=== PATIENT | female | born 1945 | race Caucasian/White ===

== ENCOUNTER → 2016-12-10 | Outpatient (CLI) | payer MEDICARE ==
--- NOTE | 2016-12-16 08:48 | NM ---
EXAM DESCRIPTION: Bone Scan, Whole Body CLINICAL HISTORY: 71 years Female, MALIGNANT NEOPLASM OF CENTRAL PORTION OF RIGHT BREAST COMPARISON: None. TECHNIQUE: Whole body imaging at three hours following 28 mCi of technetium MDP FINDINGS: Normal distribution of the isotope with normal renal and bladder activity is noted with minimal degenerative activity at the lower lumbar spine. Increased degenerative activity in the medial aspect of the left knee is also noted. A pattern to suggest metastatic disease is not apparent. IMPRESSION: Negative bone scan for metastatic disease with degenerative changes involving the left knee and lower lumbar spine. Electronically signed by: Ronald Ojeda MD 12/16/2016 8:48 AM CDT
== END | disposition home or self-care (01) ==
LOC: NM 07:46
PROVIDERS: ATTEND Internal Medicine Hematology & Oncology
DX: M79.605 Pain in left leg (principal)

== ENCOUNTER → 2017-12-22 | Outpatient (CLI) | payer MEDICARE ==
--- NOTE | 2017-12-23 10:29 | CT ---
EXAM DESCRIPTION: Chest w/Contrast CLINICAL HISTORY: 72 years Female, BREAST CA COMPARISON: CT chest dated 12/31/2015. TECHNIQUE: Contiguous thin section axial images through the chest were obtained after the administration of intravenous contrast. Sagittal and coronal reconstructions were reviewed. FINDINGS: The visualized thyroid gland and supraclavicular region appear normal. Stable 8 mm right paratracheal lymph node. No evidence of abnormally enlarged mediastinal, hilar or axillary lymphadenopathy. Trachea is midline and the central tracheobronchial tree is patent. Mild emphysematous changes are identified in the bilateral upper lobes. Again identified are groundglass nodules in the right upper lobe on image numbers 32, 46 and 58, in the right lower lobe on image #79. Soft tissue nodule in the left lower lobe on image #85 has increased in size from 4 mm to 5.8 mm. No evidence of pleural effusions. The heart is normal in size with no pericardial effusion. The visualized aorta is nonaneurysmal with no significant atherosclerosis. The superior vena cava is normal in size and caliber.No significant coronary artery atherosclerosis. The esophagus appears normal throughout its visualized length. The liver demonstrates a mildly nodular contour which can be seen with cirrhosis. Few subcentimeter retroperitoneal and claude hepatic lymph nodes are identified. The visualized bones appear grossly unremarkable. IMPRESSION: Stable groundglass changes in the right upper lobe as detailed above. The left lower lobe soft tissue nodule has mildly increased in size from 4 mm to 5.8 mm. No other new nodules or masses are visualized in the lungs. Possible early cirrhosis of the liver. This exam was performed according to our departmental dose-optimization program, which includes automated exposure control, adjustment of the mA and/or kV according to patient size and/or use of iterative reconstruction technique. Electronically signed by: Johnna Abraham MD 12/23/2017 10:28 AM CDT
== END ==
LOC: LAB.O 13:06
PROVIDERS: ATTEND Internal Medicine Hematology & Oncology
DX: C50.111 Malignant neoplasm of central portion of right female breast (principal)

== ENCOUNTER → 2018-11-03 | Outpatient (CLI) | payer MEDICARE | LOC: CT 14:06 | PROVIDERS: ATTEND Internal Medicine Hematology & Oncology | DX: C50.111 Malignant neoplasm of central portion of right female breast (principal) ==

== ENCOUNTER → 2019-05-18 | Outpatient (CLI) | payer MEDICARE ==
--- NOTE | 2019-05-19 10:27 | CT ---
EXAM DESCRIPTION: CT ABDOMEN WITHOUT AND WITH CONTRAST CLINICAL HISTORY: MALIGNANT NEOPLASM OF CENTRAL PORTION OF RIGHT BREAST COMPARISON: CT chest dated November 04, 2018 TECHNIQUE: Contiguous 3 mm axial images were obtained from above the diaphragms to below the anterior superior iliac spine level without and with the use of intravenous contrast. Oral contrast was given. Reformatted coronal and sagittal images were also obtained and reviewed. This exam was performed according to our departmental dose-optimization program, which includes Automated exposure control, adjustment of the mA and/or kV according to patient size and/or use of iterative reconstruction technique. FINDINGS: The visualized lower thorax demonstrates a stable appearing cystic lesion in the superior segment of left lower lobe closely abutting the pleura, however interval development of a 1.0 cm soft tissue density nodular opacity adjacent to the cystic lesion is concerning for metastasis in this patient with prior history of breast cancer. This was not noted on prior CT chest dated November 03, 2018. Diffuse fatty infiltration of the liver noted with no evidence of focal mass lesion or intrahepatic ductal dilatation. The gallbladder, spleen, pancreas and both adrenal glands appear grossly unremarkable. Both kidneys enhance symmetrically with no evidence of hydronephrosis, nephrolithiasis, hydroureter are perinephric stranding. The distal esophagus appears grossly unremarkable. The stomach is collapsed. The visualized small and large bowel loops appear grossly unremarkable with no abnormal dilatation or wall thickening. The appendix appears grossly unremarkable. No free intraperitoneal air or fluid. Again noted are enlarged abdominal lymph nodes, the claude hepatic node measuring up to 1 cm which appears stable from prior exam, mildly prominent peripancreatic node measuring up to 7 mm also appears stable from prior exam and paraesophageal lymph nodes. No enlarged retroperitoneal lymphadenopathy. The abdominal aorta is nonaneurysmal with the extensive atherosclerotic calcifications. The IVC appears grossly unremarkable. Review of the bone windows demonstrates a 1.3 cm lytic lesion within the anterior aspect of the L5 vertebral body is concerning for metastasis. Grade 2 anterolisthesis of L4 over L5 noted. Diffuse osteopenia of the visualized thoracolumbar spine noted.. IMPRESSION: 1. The visualized lower thorax demonstrates interval development of a 1 cm noncalcified nodular opacity in the superior segment of left lower lobe adjacent to the previously noted cystic lesion is concerning for metastasis in this patient with prior history of breast cancer. Further evaluation with a CT chest with contrast is recommended. This was not noted on prior CT chest dated November 03, 2018. 2. A 1.3 cm lytic lesion within the anterior aspect of L5 vertebral body is concerning for metastasis. No prior imaging available for comparison. A bone scan is recommended to exclude metastasis. 3. No other evidence of metastatic disease within the abdomen or pelvis. 4. Stable appearing mildly prominent abdominal lymph nodes as noted above with no significant interval increase in size. 5. Diffuse fatty infiltration of the liver. Electronically signed by: Grant Lizama MD 05/19/2019 10:25 AM CDT
== END ==
LOC: CT 13:32
PROVIDERS: ATTEND Internal Medicine Hematology & Oncology
DX: C50.111 Malignant neoplasm of central portion of right female breast (principal); R91.1 Solitary pulmonary nodule; M89.9 Disorder of bone, unspecified; K76.0 Fatty (change of) liver, not elsewhere classified

== ENCOUNTER 2019-07-22 16:05 | Emergency (ER) | payer MEDICARE ==
[2019-07-22 16:15] VITALS: TEMP 97.8
[2019-07-22] MEDS ORDERED: KETOROLAC TROMETHAMINE INJ 30 MG/ML VIAL IM ONE (16:27)
--- NOTE | 2019-07-22 16:27 | ED.PDOC ---
History of Present Illness - General Chief Complaint: General Stated Complaint: L chest wall discomfort Time Seen by Provider: 07/22/19 16:18 Source: patient, RN notes reviewed, Vital Signs reviewed Exam Limitations: no limitations - History of Present Illness Initial Comments: this is a 74-year-old white female who presents to the emergency Department with complaints of left-sided rib pain for the past week. She states that last week she had thrown a calendar on the floor beside her bed and then proceeded to slip on it when she got out of bed and fell on her right side. She states that initially both sides of her ribs hurt however the right side has improved in the left has not. She also bruised the right side of her face whenever that occurred and that has improved. She states that she has no facial pain nor does she have any alteration of her vision. Some Tylenol PM for the pain in described the pain as being sharp and 9/10 currently. Small pillow over the left side of her ribs. She states that there is been no bruising developed. Patient is not having any shortness of breath with this. She states that she is not taking any blood pressure medications although her blood pressure is high today. She does admit that she was given antihypertensives to her by her PCP but does not take them because they made her feel bad. She denies having any headache. Allergies/Adverse Reactions: Allergies NO KNOWN ALLERGY Allergy (Verified 08/03/13 14:42) Home Medications: Ambulatory Orders Calcium 600 mg PO DAILY 12/11/15 Cholecalciferol [Vitamin D-3] 2,000 unit PO DAILY 12/11/15 Multiple Vitamins W/ Minerals [One Daily For Women 50+A] 1 tab PO DAILY 12/11/15 Letrozole 2.5 mg PO DAILY 07/22/19 Tramadol HCl 50 mg PO Q6HRS #30 tab 07/22/19 Review of Systems - Review of Systems Constitutional: States: no symptoms reported EENTM: States: no symptoms reported Respiratory: States: no symptoms reported Cardiology: States: chest pain - left rib pain. Denies: edema, syncope Gastrointestinal/Abdominal: States: no symptoms reported Genitourinary: States: no symptoms reported Musculoskeletal: States: other - left-sided rib pain Skin: States: no symptoms reported, see HPI Neurological: States: no symptoms reported Past Medical History (General) - Patient Medical History Hx Stroke: No Hx Cardiac Disorders: No Hx Congestive Heart Failure: No Hx Diabetes: No Hx Cancer: Yes - R mastectomy - chemo followed by radiation Hx MRSA: No Surgical History: Hysterectomy - Vaccination History Hx Influenza Vaccination: No Hx Pneumococcal Vaccination: Yes - Social History Hx Tobacco Use: Yes Hx Alcohol Use: Yes - Occasional Hx Substance Use: No Family Medical History - Family History Mother Living Status: Hx Family Cancer: Yes - Colon Physical Exam - Physical Exam General Appearance: Alert, No apparent distress, Other - patient is noted to be splinting her left ribs Eye Exam: bilateral normal Ears, Nose, Throat: other - old bruising noted to the right zygoma and no tenderness is noted Neck: non-tender, full range of motion, supple, normal inspection Respiratory: lungs clear, normal breath sounds, no respiratory distress, no a ccessory muscle use, other - tenderness to palpation inferior to the left breast and extending to the mid axillary line and posteriorly to the left hemithorax Cardiovascular/Chest: normal peripheral pulses, regular rate, rhythm, no edema, no gallop, no JVD, no murmur Gastrointestinal/Abdominal: normal bowel sounds, non tender, soft Rectal Exam: deferred Back Exam: normal inspection, no CVA tenderness Extremity: normal range of motion, non-tender, normal inspection, no pedal edema, no calf tenderness 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 Patient will have x-ray evaluation performed. We will give her analgesia as needed. 07/22/19 17:00 reported rib fractures to the patient. Toradol has helped a little bit. Her blood pressure has responded well. We will get her ready for discharge. - Results/Orders Results/Orders: IMPRESSION: There are acute nondisplaced fractures of the left lateral third through sixth ribs. Electronically signed by: Leeann Brooke MD 07/22/2019 4:55 PM [employer] Departure - Departure Clinical Impression: Rib fractures, Fall Time of Disposition: 17:01 Disposition: Discharge to Home or Self Care Condition: Good Departure Forms: ED Discharge - Pt. Copy, Patient Portal Self Enrollment Referrals: Debi Byrd NP [Family Provider] - 1-2 Weeks Prescriptions: Tramadol HCl 50 mg PO Q6HRS #30 tab Home Medications: Ambulatory Orders Calcium 600 mg PO DAILY 12/11/15 Cholecalciferol [Vitamin D-3] 2,000 unit PO DAILY 12/11/15 Multiple Vitamins W/ Minerals [One Daily For Women 50+A] 1 tab PO DAILY 12/11/15 Letrozole 2.5 mg PO DAILY 07/22/19 Tramadol HCl 50 mg PO Q6HRS #30 tab 07/22/19 Additional Instructions: May continue to use Advil as necessary. Use tramadol for breakthrough pain. Follow up with PCP if continued discomfort. Return to ER as needed.
--- NOTE | 2019-07-22 16:56 | RAD ---
EXAM: XR Left Ribs, 2 Views CLINICAL HISTORY: fall, rib pain TECHNIQUE: Frontal and oblique views of the left ribs. COMPARISON: No relevant prior studies available. FINDINGS: Limitations: None. Lungs: Unremarkable as visualized. No consolidation. Pleural space: Unremarkable. No pneumothorax. Bones/joints: There are acute nondisplaced fractures of the left lateral third through sixth ribs. IMPRESSION: There are acute nondisplaced fractures of the left lateral third through sixth ribs. Electronically signed by: Leeann Brooke MD 07/22/2019 4:55 PM [facility]
[2019-07-22 17:01] VITALS: BP 179/92; O2SAT 94
== END 2019-07-22 17:08 | disposition home or self-care (01) ==
LOC: ER 16:05
DX: S22.42XA Multiple fractures of ribs, left side, initial encounter for closed fracture (principal); Z85.3 Personal history of malignant neoplasm of breast; Z87.891 Personal history of nicotine dependence; Z92.21 Personal history of antineoplastic chemotherapy; Z92.3 Personal history of irradiation; W01.0XXA Fall on same level from slipping, tripping and stumbling without subsequent striking against object, initial encounter; Z79.899 Other long term (current) drug therapy; Y92.9 Unspecified place or not applicable
CPT/HCPCS: 71101; J1885

== ENCOUNTER → 2020-06-12 | Outpatient (CLI) | payer MEDICARE ==
--- NOTE | 2020-06-13 09:56 | RAD ---
EXAM DESCRIPTION: Chest,2 Views CLINICAL HISTORY: ADENOCARCINOMA OF LEFT LUNG, STAGE 1 COMPARISON: Chest radiograph dated March 18, [address] dated November 13, 2018 TECHNIQUE: Two-view radiograph of the chest FINDINGS: Cardiac silhouette shows normal heart size. Pulmonary vascularity is within normal limits. Very subtle spiculation right mid lung zone may represent which correlates with approximately location of fibrotic changes of a superior segment right lower lobe on comparison chest CT of November 13, 2018. Previously demonstrated groundglass nodules better characterized on comparison chest CT of 2018. Left lung shows no confluent infiltrates. No pleural effusion. No pneumothorax. No acute osseous abnormality. IMPRESSION: Very subtle spiculation right mid lung zone may represent which correlates with approximate location of fibrotic changes of a superior segment right lower lobe lesion on comparison chest CT of November 13, 2018. Previously demonstrated groundglass pulmonary nodules better characterized on comparison chest CT of 2018. Electronically signed by: Valente Mancilla MD 06/13/2020 9:55 AM [employer]
== END ==
LOC: RAD 14:04
PROVIDERS: ATTEND Thoracic Surgery (Cardiothoracic Vascular Surgery)
DX: C34.92 Malignant neoplasm of unspecified part of left bronchus or lung (principal)

== ENCOUNTER → 2020-08-20 | Outpatient (CLI) | payer MEDICARE ==
--- NOTE | 2020-08-20 17:31 | CT ---
EXAMS DESCRIPTION: CT chest with contrast CT ABDOMEN AND PELVIS WITH CONTRAST CLINICAL HISTORY: BREAST CANCER COMPARISON: Previous CT chest November 03, 2018, previous CT abdomen and pelvis May 18, 2019 TECHNIQUE: CT of the abdomen and pelvis are performed during IV bolus administration of 100 mL of Isovue 300. No oral contrast. FINDINGS: CT chest Normal enhancement of mediastinal vessels and cardiac chambers. Extensive coronary calcification. Inhomogeneous thyroid gland could be further evaluated with sonography. Previous right mastectomy. Normal appearance of the left breast tissue. No axillary adenopathy or chest wall mass. Heart size is normal. No pericardial effusion. Lung window images are compared to previous chest CT November 03, 2018 and upper images of the abdominal CT from May 18, 2019. Biapical pleural-parenchymal scarring with subpleural fibrotic changes in the upper lobes. Broad area of groundglass density in the right upper lobe is seen peripherally measuring 3.3 x 1.9 cm. This abnormality was present on the previous CT chest November 03, 2018 and measured 2.6 x 1.6 cm at that time. The lesion has increased in size. Ring lesion with groundglass density periphery is seen more inferiorly in the right lung peripherally measuring 1.9 cm compared to 2 cm on previous study. In the superior segment right lower lobe, posteriorly abutting the pleura, lobulated consolidative lesion with internal air bronchograms is present. This is larger and denser than on the previous study which appear predominantly cystic. Upper solid component now measures 2.4 x 2.3 cm and the lower solid component closely adjacent or connected measures 3 x 1.3 cm. Previously in this area bilobed cystic lesion measured approximately 2 cm superiorly and 1.7 cm inferiorly, obviously enlarged and increasing intensity since previous. The appearance of these lesions is not typical of breast cancer metastases. Primary lung cancer (alveolar cell carcinoma) or infectious processes might be considered. Correlate with results of findings of aspiration/cultures. Abnormal densities are predominantly linear in the left lower lobe with appearance suggesting previous surgical resection of a lung lesion or linear scarring or rounded atelectasis. A subpleural masslike density measures 1.8 cm on the present study appears new. This could be followed. A cystic lesion was seen in the left lower lobe in this general vicinity on the earlier chest CT and is not identified on the present exam. Patient had an abdominal CT May 18, 2019 which showed a nodular lesion in the left lower lobe with cystic extension cephalad. This is no longer seen and is evidently surgically absent. Left lower lobe appears smaller suggesting partial resection. Clinical correlation recommended however. No left upper lobe lesion on the present exam. Coronal and sagittal reformatted images confirm the findings. Spiculated mass in the superior segment right lower lobe extends to the upper major fissure which is retracted inferiorly. Old healed left rib fractures. Sternum and T-spine appear intact. No bony destructive lesions to suggest osseous metastatic disease of the thorax. CT abdomen Liver surface irregularities consistent with cirrhosis. Gallbladder appears normal. Prominent lymph nodes are seen near the upper inferior vena cava, in the gastrohepatic ligament and in the celiac/peripancreatic regions. These are prominent related to chronic inflammatory disease of the liver most likely. These findings were present on previous study. Prominent vessels in the gastrohepatic ligament may indicate collateral formation from portal hypertension. No calcified stones in the gallbladder. Multiple calcified granulomas in the spleen. Small cysts in the kidneys. No focal liver lesion. Otherwise the spleen, pancreas, gallbladder, adrenal glands, stomach and kidneys are normal in appearance. No inflammation around the pancreas. No renal stones or hydronephrosis. No bowel dilatation to suggest obstruction. Prominent thickness of the colonic wall of the transverse colon and right colon with low density suggesting mild submucosal edema. Incomplete colonic distention, colitis or portal hypertensive colopathy might all be considered. This is a new finding compared to previous study. No edema around the colonic wall to suggest acute infection or inflammatory bowel disease. Normal appearance of the appendix. No free air or free fluid. CT pelvis Appendix appears normal. No inflammation around the cecum or terminal ileum or sigmoid colon. Bladder and distal ureters are negative for stones. Normal enhancement of pelvic vessels. No inguinal or lower pelvic adenopathy. Uterus is surgically absent. Ovaries are normal in size. Facet degenerative changes are most prominent at L4-5 and L5-S1. Moderate L4-5 spinal stenosis. Coronal and sagittal reformatted images confirm the findings. No evidence of abdominal metastases. Sagittal reformatted images show rim sclerotic lesion with central lucency in the L5 vertebral body. The appearance is not typical of hemangioma and osseous metastasis is favored. Bone scan may be helpful to demonstrate the full extent of osseous metastatic involvement. IMPRESSION: Atypical cystic and solid lung lesions, increased compared to previous study. See above differential considerations. L5 vertebral body lesion consistent with metastasis. Status post right mastectomy. Cirrhotic liver with mild upper abdominal changes of portal hypertension. Mild colitis/colopathy of the right colon and transverse colon. This exam was performed according to our departmental dose-optimization program, which includes automated exposure control, adjustment of the mA and/or kV according to patient size and/or use of iterative reconstruction technique. Total DLP equals 1347.7 mGycm. Electronically signed by: Zac Estrada MD 08/20/2020 5:29 PM [facility]
== END ==
LOC: CT 11:29
PROVIDERS: ATTEND Internal Medicine Hematology & Oncology
DX: C34.90 Malignant neoplasm of unspecified part of unspecified bronchus or lung (principal); C79.51 Secondary malignant neoplasm of bone; C50.111 Malignant neoplasm of central portion of right female breast; K76.6 Portal hypertension; R16.0 Hepatomegaly, not elsewhere classified; K74.60 Unspecified cirrhosis of liver; K52.9 Noninfective gastroenteritis and colitis, unspecified; Z90.11 Acquired absence of right breast and nipple